=== PATIENT | female | born 1950 | race Caucasian/White ===

== ENCOUNTER → 2023-12-22 | Outpatient (CLI) | payer MEDICARE | LOC: M RAD 07:02 | PROVIDERS: ATTEND Orthopaedic Surgery Hand Surgery | DX: S83.232A Complex tear of medial meniscus, current injury, left knee, initial encounter (principal); Y93.9 Activity, unspecified; Y92.9 Unspecified place or not applicable ==

== ENCOUNTER → 2024-01-05 | Outpatient (CLI) | payer MEDICARE | LOC: M SOG 07:53 | PROVIDERS: ATTEND Physician Assistant | DX: M11.262 Other chondrocalcinosis, left knee (principal); M25.861 Other specified joint disorders, right knee ==